=== PATIENT | female | born 1950 | race Caucasian/White ===

== ENCOUNTER → 2017-01-19 | Outpatient (CLI) | payer BC ==
[~2017-01-19] MED LIST: ASPI81TA28 PO; EMPA1TAB PO; LEVO150T PO; LISI-729 PO; PRVC/40 PO
--- NOTE | 2017-01-19 13:57 | MAMMOGRAPHY REPORT ---
BILATERAL DIGITAL SCREENING MAMMOGRAM WITH CAD: 01/19/2017 CLINICAL HISTORY: Routine screening. Patient has no complaints. TECHNIQUE: Current study was also evaluated with a Computer Aided Detection (CAD) system. Bilatera l CC and MLO views were obtained. COMPARISON: Comparison is made to exams dated: 12/28/2015 mammogram, 06/28/2015 mammogram, 12/23/2014 ma mmogram, 12/23/2014 ultrasound, 12/20/2012 mammogram, and 12/04/2011 mammogram - [facility] enter. BREAST COMPOSITION: The tissue of both breasts is heterogeneously dense, which may obscure small ma sses. FINDINGS: No suspicious masses, calcifications, or areas of architectural distortion are noted in e ither breast. There has been no significant interval change compared to prior exams. Nodular asymme try in the left inferior breast on the MLO view is stable dating back to the 2009 exam. IMPRESSION: ACR BI-RADS CATEGORY 2: BENIGN There is no mammographic evidence of malignancy. A 1 year screening mammogram is recommended. The p atient will receive written notification of the results. Approximately 10% of breast cancers are not detected with mammography. A negative mammographic repor t should not delay biopsy if a clinically suggestive mass is present. Nidia Guerra M.D. ah/:01/19/2017 09:37:48 Sinker Puller: Krystin ZHU(R)(M), [facility] letter sent: Normal 1/2 BI-RADS Code: ACR BI-RADS Category 2: Benign
== END | disposition home or self-care (01) ==
LOC: C.MAMM 08:30
PROVIDERS: ATTEND Obstetrics & Gynecology
DX: Z12.31 Encounter for screening mammogram for malignant neoplasm of breast (principal)

== ENCOUNTER → 2017-04-09 | Outpatient (CLI) | payer BC | END | disposition home or self-care (01) | LOC: C.PAPS 16:51 | PROVIDERS: ATTEND Obstetrics & Gynecology | DX: Z01.419 Encounter for gynecological examination (general) (routine) without abnormal findings (principal) ==

== ENCOUNTER 2017-06-09 10:06 | Emergency (ER) | payer BC ==
[~2017-06-09] VITALS: Ht 157.5 cm; Wt 73.1 kg
[2017-06-09 10:29] VITALS: Ht 157.5 cm; Wt 73.1 kg
[2017-06-09] MEDS ORDERED: ASPI81TA28 PO (11:14)
[2017-06-09] MEDS ORDERED: LEVO150T PO (11:14)
[2017-06-09] MEDS ORDERED: LISI-729 PO (11:14)
[2017-06-09] MEDS ORDERED: PRVC/40 PO (11:14)
[2017-06-09] MEDS ORDERED: EMPA1TAB PO (11:14)
[2017-06-09] MEDS ORDERED: ACETAMINOPHEN 325 MG TAB PO STA (11:41)
[2017-06-09] MEDS ORDERED: IBUPROFEN 600 MG TAB PO STA (11:41)
--- NOTE | 2017-06-09 12:18 | DIAGNOSTIC IMAGING REPORT ---
HEAD WITHOUT CONTRAST (CT) CT DOSE: 601.98 mGy.cm HISTORY: Headache. Mental status change. VANEGAS eval for bleed TECHNIQUE: Multiaxial CT images of the head were performed without the use of intravenous contrast. Comparison: None. Findings: The paranasal sinuses and mastoid air cells are clear. The calvarium and skull base are intact. The ventricles and sulci are within normal limits. There is no mass, hematoma, midline shift, or acute infarct. 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 It may contain grammatical, syntax or spelling errors. Electronically signed by: Maximino George M.D. 06/09/2017 12:16 PM Dictated Date/Time: 06/09/2017 12:16 PM
[2017-06-09 13:03] VITALS: BP 157/77; PULSE 61; TEMP 36.8; O2SAT 98
--- NOTE | 2017-06-09 16:54 | EMERGENCY ROOM VISIT NOTE ---
History Report prepared by Bharathi: Chari Kirby Under the Supervision of: Dr. Slade Hay M.D. First contact with patient: 11:32 Chief Complaint: HEADACHE Stated Complaint: SEVERE HEADACHE History of Present Illness The patient is a 67 year old female who presents to the Emergency Room with complaints of a persistent headache that began on Sunday. She currently rates her discomfort as a 3/10 in severity. The patient states that she does not typically get headaches, but when she does, she states that she takes aspirin to alleviate her pain. She states that she cannot sleep at night now due to the pain. The patient describes her pain as a throbbing pain and gripping pain. She reports bilateral ear aches and neck stiffness. The patient states that she went to [facility] today and states that she checked okay. She says they told that her ears look fine. She states that she was told to come to the emergency department for further evaluation and treatment as a precaution. The patient denies any recent fall or trauma. She denies her pain worsening with light. The patient denies any tick bites. She denies any tobacco or alcohol use. The patient states that she has a history of hypothyroidism, hypertension , high cholesterol, and diabetes. She denies any fever, visual disturbances, vomiting, numbness or weakness. The patient states that she takes aspirin daily. Source of History: patient Onset: Sunday Position: head Symptom Intensity: 3/10 Quality: other (throbbing, gripping) Timing: other (persistent) Associated Symptoms: + neck pain (stiffness), No fevers, No vomiting, No weakness, No numbness Review of Systems See HPI for pertinent positives & negatives. A total of 10 systems reviewed and were otherwise negative. Past Medical & Surgical Medical Problems: (1) Diabetes (2) High cholesterol (3) Hypertension (4) Hypothyroidism Family History No pertinent family history stated. Social History Smoking Status: Never Smoker Smokeless Tobacco Use: No Alcohol Use: none Marital Status: Housing Status: lives with significant other Occupation Status: employed Current/Historical Medications Scheduled Aspirin (Aspirin Ec), 81 MG PO DAILY Empagliflozin (Jardiance), 10 MG PO DAILY Levothyroxine Sodium (Synthroid), 150 MCG PO DAILY Lisinopril (Zestril), 5 MG PO DAILY Pravastatin Sod (Pravastatin Sodium), 20 MG PO DAILY Allergies Coded Allergies: No Known Allergies (Verified , 06/09/17) Physical Exam Vital Signs Date Time Temp Pulse Resp B/P (MAP) Pulse Ox O2 Delivery O2 Flow Rate FiO2 06/09/17 13:03 36.8 61 18 157/77 98 06/09/17 10:29 36.8 64 18 151/82 97 Room Air Physical Exam Constitutional: Vital signs reviewed. Eyes: Pupils are equal round reactive to light. Conjunctiva are noninjected. ENT: Pharynx is clear without erythema or exudate. Mucous membranes are moist. Neck supple without meningeal signs. Respiratory: Clear to auscultation bilaterally. Breath sounds are equal bilaterally. Cardiovascular: Regular rate and rhythm. No rubs or gallops. GI: Soft, nondistended and nontender. Bowel sounds are present. Musculoskeletal: No peripheral edema. No lower extremity tenderness. Integumentary: No cyanosis. Neurological: The patient is awake and alert. Cranial nerves II-XII are intact. Motor is 5 out of 5 all extremities. Sensation is intact to light touch all extremities. Normal speech. No pronator drift. Psychiatric: Normal affect. Medical Decision & Procedures ER Provider Diagnostic Interpretation: CT results as stated below per my review and radiologist interpretation. HEAD WITHOUT CONTRAST (CT) CT DOSE: 601.98 mGy.cm HISTORY: Headache. Mental status change. VANEGAS eval for bleed TECHNIQUE: Multiaxial CT images of the head were performed without the use of intravenous contrast. Comparison: None. Findings: The paranasal sinuses and mastoid air cells are clear. The calvarium and skull base are intact. The ventricles and sulci are within normal limits. There is no mass, hematoma, midline shift, or acute infarct. 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 It may contain grammatical, syntax or spelling errors. Electronically signed by: Maximino George M.D. 06/09/2017 12:16 PM Dictated Date/Time: 06/09/2017 12:16 PM Medications Administered Medications (Trade) Dose Ordered Sig/Patience Route Start Time Stop Time Status Last Admin Dose Admin Ibuprofen (Motrin Tab) 600 mg NOW STAT PO 06/09/17 11:41 06/09/17 11:44 DC 06/09/17 11:58 600 MG Acetaminophen (Tylenol Tab) 650 mg NOW STAT PO 06/09/17 11:41 06/09/17 11:44 DC 06/09/17 11:58 650 MG ED Course 1133: The patient was evaluated in room B11B. A complete history and physical exam was performed. 1141: Ordered Tylenol Tab 650 mg PO, Motrin Tab 600 mg PO. 1237: I reevaluated the patient and she states her headache is better with Tylenol and Motrin. I recommended close follow up with her PCP as to why she had a prior stroke. I discussed all the exam findings with her and I discussed the treatment plan. She verbalized complete understanding and agreement. She is ready to go home. Medical Decision This is a 67-year-old female presents with a headache. Differential diagnosis includes intracranial mass, intracranial hemorrhage, migraine headache, tension headache, cervical disc disease. I did perform a limited focused review of portions of the patient's old chart on the electronic medical record. The patient has had no recent pertinent visits to this hospital. Medication Reconciliation: I attest that I have personally reviewed the patient' s current medication list. Blood Pressure Screening: Patient was found to have an elevated blood pressure and was referred to their primary doctor for recheck and further treatment. I did evaluate the patient as noted above. The patient is presenting with a headache for the past several days. She rates it a 3 out of 10 in severity. She is neurologically intact. I did treat patient with oral Tylenol and Motrin. I did order a CT of the head. I did review the images myself as well as the radiology report as described above. There is no evidence of acute process. She does have an old periventricular infarct. I did discuss the test results with the patient. On reexamination the patient is stating that her headache is much improved. She has no recollection of ever being diagnosed with a stroke and so I did recommend she continue her aspirin daily and to follow closely with her doctor for further workup and stroke prevention. She was discharged in good condition. Impression Primary Impression: Acute headache Scribe Attestation The scribe's documentation has been prepared under my direct and personally reviewed by me in its entirety. I confirm that the note above accurately reflects all work, treatment, procedures, and medical decision making performed by me. Departure Information Dispostion Home / Self-Care Referrals Joel Garza M.D. (PCP) Forms HOME CARE DOCUMENTATION FORM, IMPORTANT VISIT INFORMATION Patient Instructions Headache Pain, My [facility] Additional Instructions You have been examined and treated today on an emergency basis only. This is not a substitute for, or an effort to provide, complete comprehensive medical care. It is impossible to recognize and treat all injuries or illnesses in a single emergency department visit. It is therefore important that you follow up closely with your physician next week. Call as soon as possible for an appointment. Return for worsening symptoms or if you develop fever, numbness or weakness on one side of your body, difficulties with your speech or walking, or any other concerning symptoms. Talk to your doctor about further workup regarding stroke prevention and continue taking aspirin daily. Problem Qualifiers Primary Impression: Acute headache Headache type: unspecified Intractability: not intractable Qualified Codes : R51 - Headache
== END 2017-06-09 13:00 | disposition home or self-care (01) ==
LOC: C.EDB 10:09
DX: R51 Headache (principal); I10 Essential (primary) hypertension; E11.9 Type 2 diabetes mellitus without complications; E78.00 Pure hypercholesterolemia, unspecified; E03.9 Hypothyroidism, unspecified; Z79.899 Other long term (current) drug therapy

== ENCOUNTER → 2017-06-20 | Outpatient (CLI) | payer BC ==
--- NOTE | 2017-06-20 13:09 | DIAGNOSTIC IMAGING REPORT ---
CAROTID DOPPLER NECK ART HISTORY: Mental status change HX OF STROKE COMPARISON: None. TECHNIQUE: Real-time, grayscale, and color Doppler sonography of the carotid arteries was performed. Imaging reviewed in the transverse and longitudinal planes. All measurements were calculated based on NASCET criteria. FINDINGS: Antegrade flow is seen in the bilateral vertebral arteries. The brachial pressures are hemodynamically similar. Minimal plaque bilaterally The peak systolic velocity within the right ICA is 83. The right systolic ratio is 1.0. The peak systolic velocity within the left ICA is 79. The left systolic ratio is 0.9. IMPRESSION: No hemodynamically significant stenosis seen within the carotid arteries. The above report was generated using voice recognition software. It may contain grammatical, syntax or spelling errors. Electronically signed by: Maximino George M.D. 06/20/2017 1:07 PM Dictated Date/Time: 06/20/2017 1:07 PM
--- NOTE | 2017-06-20 15:41 | ECHOCARDIOGRAM REPORT ---
*NOTICE TO RECEIVING REPUBLICAN AGENCY This information is strictly Confidential and protected under [place] law. [place] law prohibits you from making any further disclosure of this information unless further disclosure is expressly permitted by the written consent of the person to whom it pertains or is authorized by law. A general authorization for the release of medical or other information is not sufficient for this purpose. Hospital accepts no responsibility if the information is made available to any other person, INCLUDING THE PATIENT. Interpretation Summary * Name: RACHEL CRUZ Study Date: 06/20/2017 01:05 PM BP: 141/66 mmHg * Patient Location: [facility] HR: 57 * : 1950 (M/d/yyyy) Gender: Female Height: 62 in * Age: 67 yrs Ethnicity: CA Weight: 157 lb * Ordering Physician: Joel Garza * Referring Physician: Joel Garza * Performed By: Ian Venegas RCS * * Reason For Study: Murmurs * BSA: 1.7 m2 * -- Conclusions -- * Left ventricular systolic function is normal. * No regional wall motion abnormalities noted. * Ejection Fraction = 60-65%. * There is mild concentric left ventricular hypertrophy. * Grade I diastolic dysfunction, (abnormal relaxation pattern). * Aortic valve sclerosis bordering on mild stenosis. * Mild aortic regurgitation. * Mild mitral regurgitation. * Mild tricuspid regurgitation. Procedure Details * A complete two-dimensional transthoracic echocardiogram was performed (2D, M-mode, Doppler and color flow Doppler). Left Ventricle * The left ventricle is normal in size. * There is mild concentric left ventricular hypertrophy. * Ejection Fraction = 60-65%. * Left ventricular systolic function is normal. * No regional wall motion abnormalities noted. Right Ventricle * The right ventricle is not well visualized. * The right ventricular systolic function is normal as assessed by tricuspid annular plane systolic excursion (TAPSE) (normal >1.5 cm). Atria * The left atrium is mildly dilated. * Right atrium not well visualized. * There is no evidence of atrial septal defect, but resolution does not allow assessment for a patent foramen ovale. Mitral Valve * The mitral valve is not well visualized. * There is moderate mitral annular calcification. * No significant mitral valve stenosis. * There is mild mitral regurgitation. Tricuspid Valve * The tricuspid valve is not well visualized, but is grossly normal. * There is no tricuspid stenosis. * There is mild tricuspid regurgitation. Aortic Valve * The aortic valve is tricuspid. The leaflet thickness if normal. There is no aortic stenosis, and no significant insufficiency. * Aortic valve sclerosis bordering on mild stenosis. * Mild aortic regurgitation. Pulmonic Valve * The pulmonary valve is not well seen, but the Doppler examination is normal without significant regurgitation or stenosis. Great Vessels * The aortic root is normal size. * The pulmonary is not well visualized. Pericardium/Pleural * There is no pericardial effusion. Great Vessels * IVC not well seen. Left Ventricular Diastolic Function * Grade I diastolic dysfunction, (abnormal relaxation pattern). * E to e'= <10 abnormal relaxation MMode 2D Measurements and Calculations IVSd 1.0 cm IVSs 1.3 cm LVIDd 4.0 cm LVIDs 2.6 cm LVPWd 1.0 cm LVPWs 1.3 cm IVS/LVPW 0.96 FS 36.5 % EDV(Teich) 71.0 ml ESV(Teich) 23.6 ml EF(Teich) 66.8 % EDV(cubed) 65.2 ml ESV(cubed) 16.7 ml EF(cubed) 74.4 % % IVS thick 31.1 % % LVPW thick 22.5 % LV mass(C)d 132.9 grams LV mass(C)dI 77.1 grams/m\S\2 LV mass(C)s 100.6 grams LV mass(C)sI 58.4 grams/m\S\2 CO(Teich) 2.7 l/min CI(Teich) 1.5 l/min/m\S\2 SV(Teich) 47.4 ml SI(Teich) 27.5 ml/m\S\2 CO(cubed) 2.7 l/min CI(cubed) 1.6 l/min/m\S\2 SV(cubed) 48.5 ml SI(cubed) 28.1 ml/m\S\2 Ao root diam 2.7 cm Ao root area 5.9 cm\S\2 ACS 1.5 cm LA dimension 3.1 cm asc Aorta Diam 3.0 cm LA/Ao 1.1 LVAd ap4 25.8 cm\S\2 LVLd ap4 7.4 cm EDV(MOD-sp4) 75.0 ml LVAs ap4 15.0 cm\S\2 LVLs ap4 6.7 cm ESV(MOD-sp4) 29.0 ml EF(MOD-sp4) 61.3 % LVAd ap2 23.2 cm\S\2 LVLd ap2 7.6 cm EDV(MOD-sp2) 59.0 ml LVAs ap2 11.9 cm\S\2 LVLs ap2 6.0 cm ESV(MOD-sp2) 21.0 ml EF(MOD-sp2) 64.4 % CO(MOD-sp4) 2.6 l/min CI(MOD-sp4) 1.5 l/min/m\S\2 SV(MOD-sp4) 46.0 ml SI(MOD-sp4) 26.7 ml/m\S\2 CO(MOD-sp2) 2.1 l/min CI(MOD-sp2) 1.2 l/min/m\S\2 SV(MOD-sp2) 38.0 ml SI(MOD-sp2) 22.0 ml/m\S\2 Doppler Measurements and Calculations MV E max jean-paul 87.7 cm/sec MV A max jean-paul 104.7 cm/sec MV E/A 0.84 MV dec time 0.27 sec Ao V2 max 219.1 cm/sec Ao max PG 19.2 mmHg Ao max PG (full) 13.6 mmHg AI max jean-paul 360.9 cm/sec AI max PG 52.1 mmHg AI dec slope 142.3 cm/sec\S\2 AI P1/2t 742.5 msec LV V1 max PG 5.6 mmHg LV V1 max 118.5 cm/sec PA V2 max 99.1 cm/sec PA max PG 3.9 mmHg TR max jean-paul 210.9 cm/sec
== END | disposition home or self-care (01) ==
LOC: C.ULTR 12:21
PROVIDERS: ATTEND Family Medicine
DX: I65.23 Occlusion and stenosis of bilateral carotid arteries (principal); Z86.73 Personal history of transient ischemic attack (TIA), and cerebral infarction without residual deficits

== ENCOUNTER → 2017-07-11 | Outpatient (CLI) | payer BC ==
--- NOTE | 2017-07-11 10:16 | DIAGNOSTIC IMAGING REPORT ---
MRI OF THE BRAIN WITHOUT IV CONTRAST CLINICAL HISTORY: Chronic infarct seen by CT. COMPARISON STUDY: CT of the brain dated 06/09/2017. TECHNIQUE: MRI of the brain was performed utilizing various T1 and T2-weighted sequences in the axial, sagittal, and coronal planes. IV contrast was not administered for this examination. FINDINGS: Brain parenchyma: There are age-related involutional changes noting mild patchy subcortical and periventricular microangiopathic disease. There is encephalomalacia identified in the right posterior parietal white matter consistent with a remote insult/infarct. Chronic lacunar infarcts are also identified in the right cerebellar hemisphere and the left thalamus. There is no hemorrhage or mass effect. There is no restricted diffusion to suggest acute ischemia. Johnson-white matter differentiation is preserved. No extra-axial fluid collection is seen. The cerebellar tonsils are normal in configuration. Ventricles, sulci, and cisterns: Prominent secondary to involutional change. Pituitary and sella: Unremarkable. Intracranial vasculature: Normal flow voids are maintained at the skull base. Orbits: The bony orbits are grossly intact. Orbital contents are normal in appearance. Sinuses and mastoids: Clear. Calvarium: Unremarkable. Cervical cord: Partially visualized cervical spinal cord is normal in morphology and signal intensity. IMPRESSION: 1. No acute intracranial abnormality. 2. There is a encephalomalacia within the right posterior parietal white matter consistent with a remote insult/infarct. Additional tiny chronic lacunar infarcts are seen in the left thalamus and the right cerebellar hemisphere. Electronically signed by: Navin Torre M.D. 07/11/2017 10:14 AM Dictated Date/Time: 07/11/2017 10:10 AM
== END | disposition home or self-care (01) ==
LOC: C.MRI 09:32
PROVIDERS: ATTEND Family Medicine
DX: G93.89 Other specified disorders of brain (principal); Z86.73 Personal history of transient ischemic attack (TIA), and cerebral infarction without residual deficits

== ENCOUNTER → 2018-01-23 | Outpatient (CLI) | payer OTHER ==
--- NOTE | 2018-01-23 15:54 | MAMMOGRAPHY REPORT ---
BILATERAL DIGITAL SCREENING MAMMOGRAM TOMOSYNTHESIS WITH CAD: 01/23/2018 CLINICAL HISTORY: Routine screening. The patient reports continued left axillary fullness. TECHNIQUE: Breast tomosynthesis in addition to standard 2D mammography was performed. Current study was also evaluated with a Computer Aided Detection (CAD) system. COMPARISON: Comparison is made to exams dated: 01/19/2017 mammogram, 12/28/2015 mammogram, 12/22/2014 ma mmogram, 12/23/2013 mammogram, 12/12/2012 mammogram, and 12/04/2011 mammogram - [facility] ter. BREAST COMPOSITION: The tissue of both breasts is heterogeneously dense, which may obscure small mas ses. FINDINGS: No suspicious masses, calcifications, or areas of architectural distortion are noted in ei ther breast. There has been no significant interval change compared to prior exams. IMPRESSION: ACR BI-RADS CATEGORY 1: NEGATIVE There is no mammographic evidence of malignancy. A 1 year screening mammogram is recommended. Also r ecommend continued clinical follow-up for left axillary fullness. The patient will receive written n otification of the results. Approximately 10% of breast cancers are not detected with mammography. A negative mammographic report should not delay biopsy if a clinically suggestive mass is present. Nidia Guerra M.D. /:01/23/2018 12:32:29 Combine Inspector: Oralia SANTOS)(M), [facility] letter sent: Normal 1/2 BI-RADS Code: ACR BI-RADS Category 1: Negative
== END | disposition home or self-care (01) ==
LOC: C.MAMM 09:22
PROVIDERS: ATTEND Obstetrics & Gynecology
DX: Z12.31 Encounter for screening mammogram for malignant neoplasm of breast (principal)

== ENCOUNTER → 2018-02-26 | Outpatient (CLI) | payer SELFPAY | END | disposition home or self-care (01) | LOC: C.LAB 07:22 | PROVIDERS: ATTEND Nutritionist | DX: Z01.84 Encounter for antibody response examination (principal) ==

== ENCOUNTER → 2018-06-26 | Outpatient (CLI) | payer OTHER ==
--- NOTE | 2018-06-26 13:12 | EXERCISE STRESS ECHO ---
*NOTICE TO RECEIVING REPUBL[employer] AGENCY This information is strictly Confidential and protected under [place] law. [place] law prohibits you from making any further disclosure of this information unless further disclosure is expressly permitted by the written consent of the person to whom it pertains or is authorized by law. A general authorization for the release of medical or other information is not sufficient for this purpose. Hospital accepts no responsibility if the information is made available to any other person, INCLUDING THE PATIENT. Interpretation Summary * Name: RACHEL CRUZ Study Date: 06/26/2018 08:49 AM BP: 125/74 mmHg * Patient Location: [facility] HR: 54 * : 1950 (M/d/yyyy) Gender: Female Height: 62 in * Age: 68 yrs Ethnicity: [place] Weight: 157 lb * Ordering Physician: Joel Garza * Referring Physician: Joel Garza. * Performed By: Fior Raman [facility] * * Reason For Study: EXERTIONAL CHEST PAIN * BSA: 1.7 m2 * -- Conclusions -- * There is borderline concentric left ventricular hypertrophy. * Left ventricular systolic function is normal. * Grade I diastolic dysfunction, (abnormal relaxation pattern). * Mild aortic regurgitation. * There is mild mitral annular calcification. * Right ventricular systolic pressure is normal. * Diagnostic exercise echocardiogram with abnormal EKG response to exercise but no evidence of inducible wall motion abnormalities suggesting the absence true inducible ischemia. Procedure Details * ECHOEX, CPT #[id number] * ECHO COLOR FLOW, CPT #[id number] * ECHO DOPPLER, CPT #[id number] Left Ventricular Findings with Stress * Diagnostic exercise echocardiogram with abnormal EKG response to exercise but no evidence of inducible wall motion abnormalities suggesting the absence true inducible ischemia. Left Ventricle * The left ventricle is normal in size. * There is borderline concentric left ventricular hypertrophy. * Left ventricular systolic function is normal. * Ejection Fraction = 55-60%. * Grade I diastolic dysfunction, (abnormal relaxation pattern). * The left ventricular wall motion is normal at rest. Right Ventricle * The right ventricle is normal in size and function. Atria * The left atrial size is normal. * Right atrial size is normal. Mitral Valve * There is mild mitral annular calcification. * There is trace mitral regurgitation. Tricuspid Valve * The tricuspid valve is not well visualized, but is grossly normal. * There is trace tricuspid regurgitation. * Right ventricular systolic pressure is normal. Aortic Valve * The aortic valve is normal in structure and function. * The aortic valve is trileaflet. * No hemodynamically significant valvular aortic stenosis. * Mild aortic regurgitation. Pulmonic Valve * The pulmonic valve is not well seen, but is grossly normal. Great Vessels * The aortic root is normal size. Pericardium * There is no pericardial effusion. Stress Parameters * Normal baseline electrocardiogram. * Was up to [address] segment depression at peak exertion * The stress portion of this study was personally supervised by the undersigned interpreting physician. * Rest heart rate was '54' BPM. * Rest blood pressure was '125/74' * Maximum heart rate achieved was 134 bpm. * Maximum heart rate was 89 % of maximum age-predicted heart rate. * Maximum blood pressure was '176/73' * Total exercise time was '06:46' * Maximum exercise MET level achieved was '8.10' METS * Maximum treadmill speed was '3.40' miles per hour. * Maximum treadmill elevation was '14.00'% grade. Left Ventricular Findings with Stress * Baseline EKG was normal There was [address] segment depression at peak exertion Baseline echocardiogram was normal There was normal augmentation of all segments without development of inducible wall motion abnormalities at peak exertion Normal heart rate and blood pressure response to exercise Blair treadmill score: 1.5 (moderate risk) MMode 2D Measurements and Calculations IVSd 1.2 cm IVSs 1.5 cm LVIDd 4.5 cm LVIDs 2.5 cm LVPWd 1.3 cm LVPWs 1.4 cm IVS/LVPW 0.95 FS 44.8 % EDV(Teich) 90.7 ml ESV(Teich) 21.5 ml EF(Teich) 76.3 % EDV(cubed) 88.9 ml ESV(cubed) 15.0 ml EF(cubed) 83.2 % % IVS thick 23.5 % % LVPW thick 11.8 % LV mass(C)d 200.4 grams LV mass(C)dI 116.2 grams/m\S\2 LV mass(C)s 114.3 grams LV mass(C)sI 66.3 grams/m\S\2 SV(Teich) 69.2 ml SI(Teich) 40.1 ml/m\S\2 SV(cubed) 74.0 ml SI(cubed) 42.9 ml/m\S\2 Ao root diam 2.4 cm Ao root area 4.5 cm\S\2 LA dimension 3.5 cm LA/Ao 1.4 LVOT diam 1.9 cm LVOT area 2.8 cm\S\2 LVAd ap4 31.1 cm\S\2 LVLd ap4 7.6 cm EDV(MOD-sp4) 103.2 ml EDV(sp4-el) 108.3 ml LVAs ap4 16.4 cm\S\2 LVLs ap4 5.4 cm ESV(MOD-sp4) 41.8 ml ESV(sp4-el) 42.7 ml EF(MOD-sp4) 59.5 % EF(sp4-el) 60.5 % LVAd ap2 27.7 cm\S\2 LVLd ap2 7.6 cm EDV(MOD-sp2) 83.3 ml EDV(sp2-el) 85.8 ml LVAs ap2 14.0 cm\S\2 LVLs ap2 5.3 cm ESV(MOD-sp2) 31.0 ml ESV(sp2-el) 31.2 ml EF(MOD-sp2) 62.7 % EF(sp2-el) 63.6 % LVLd %diff 0.12 % EDV(MOD-bp) 94.2 ml LVLs %diff -1.31 % ESV(MOD-bp) 35.2 ml EF(MOD-bp) 62.6 % SV(MOD-sp4) 61.4 ml SI(MOD-sp4) 35.6 ml/m\S\2 SV(MOD-sp2) 52.2 ml SI(MOD-sp2) 30.3 ml/m\S\2 SV(MOD-bp) 59.0 ml SI(MOD-bp) 34.2 ml/m\S\2 SV(sp4-el) 65.6 ml SI(sp4-el) 38.0 ml/m\S\2 SV(sp2-el) 54.6 ml SI(sp2-el) 31.7 ml/m\S\2 Doppler Measurements and Calculations MV E max jean-paul 99.2 cm/sec MV A max jean-paul 106.8 cm/sec MV E/A 0.93 MV P1/2t max jean-paul 112.6 cm/sec MV P1/2t 65.4 msec MVA(P1/2t) 3.4 cm\S\2 MV dec slope 504.1 cm/sec\S\2 MV dec time 0.24 sec Ao V2 max 275.1 cm/sec Ao max PG 30.3 mmHg Ao max PG (full) 25.3 mmHg Ao V2 mean 190.8 cm/sec Ao mean PG 16.5 mmHg Ao V2 VTI 64.5 cm JOSELINE(V,A) 1.1 cm\S\2 JOSELINE(V,D) 1.1 cm\S\2 AI max jean-paul 248.4 cm/sec AI max PG 24.7 mmHg AI dec slope 181.9 cm/sec\S\2 AI P1/2t 399.9 msec LV V1 max PG 5.0 mmHg LV V1 max 111.6 cm/sec MR max jean-paul 520.5 cm/sec MR max PG 108.4 mmHg SV(Ao) 292.3 ml SI(Ao) 169.5 ml/m\S\2 PA V2 max 86.3 cm/sec PA max PG 3.0 mmHg TR max jean-paul 214.0 cm/sec
== END | disposition home or self-care (01) ==
LOC: C.CPL 09:39
PROVIDERS: ATTEND Family Medicine
DX: R07.9 Chest pain, unspecified (principal)